=== PATIENT | female | born 1945 | race Caucasian/White ===

== ENCOUNTER 2016-06-20 09:25 | Outpatient (CLI) | payer OTHER ==
[~2016-06-20 09:25] MED LIST: ESTR0.5T4 PO; PRIM50TA PO; TOPI25TA8 PO
[2016-06-20 10:10] LABS: CREATININE 0.96 mg/dL (0.55-1.30); UREA NITROGEN, BLOOD 15 mg/dL (8-21)
== END 2016-06-20 19:42 | disposition home or self-care (01) ==
LOC: SLB 09:25
PROVIDERS: ATTEND Internal Medicine
DX: D64.9 Anemia, unspecified (principal); K76.89 Other specified diseases of liver
CPT/HCPCS: 36415; 82565-TC; 84520-TC

== ENCOUNTER 2016-06-22 08:53 | Outpatient (CLI) | payer OTHER ==
[2016-06-22] MEDS ORDERED: IOHEXOL 100 ML IV ONE (09:32)
== END 2016-06-22 19:00 | disposition home or self-care (01) ==
LOC: SCT 08:53
PROVIDERS: ATTEND Internal Medicine
DX: K76.89 Other specified diseases of liver (principal); K30 Functional dyspepsia
CPT/HCPCS: 74170; Q9967